=== PATIENT | female | born 2000 | race Caucasian/White ===

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

== ENCOUNTER → 2019-02-02 | Outpatient (CLI) | payer BC | END | disposition home or self-care (01) | LOC: US 06:30 | DX: K81.0 Acute cholecystitis (principal); R11.0 Nausea ==

== ENCOUNTER → 2019-08-02 | Outpatient (CLI) | payer BC | END | disposition home or self-care (01) | LOC: US 16:00 | DX: M79.605 Pain in left leg (principal); R20.0 Anesthesia of skin ==

== ENCOUNTER → 2021-06-13 | Outpatient (CLI) | payer BC, OTHER | END | disposition home or self-care (01) | LOC: RAD 14:00 | PROVIDERS: ATTEND Nurse Practitioner Family | DX: N92.6 Irregular menstruation, unspecified (principal); R10.9 Unspecified abdominal pain; F32.A Depression, unspecified ==

== ENCOUNTER 2021-11-16 08:27 | Emergency (ER) | payer BC, OTHER ==
[~2021-11-16] VITALS: Ht 160 cm; Wt 95.3 kg
[2021-11-16 08:56] LABS: BASO % 0.2 % (0.0-1.0); EOS # 0.1 10*3/uL (0.0-0.4); EOS % 0.9 % (1.0-4.0); HEMATOCRIT 41.1 % (37.0-47.0); LYMPH # 1.8 10*3/uL (1.3-4.4); LYMPH % 21.4 % (27.0-41.0); MEAN CORPUSCULAR HGB 29.7 pg (27.0-31.0); MEAN CORPUSCULAR HGB CONC 33.3 g/dl (33.0-37.0); MEAN PLATELET VOLUME 10.9 fl (9.6-12.3); MONO # 0.4 10*3/uL (0.1-1.0); MONO % 4.8 % (3.0-9.0); NEUT # 6.2 10*3/uL (2.3-7.9); NEUT % 72.5 % (47.0-73.0); PLATELET COUNT AUTOMATED 214 10*3/uL (130-400); RED BLOOD COUNT 4.62 10*6/uL (4.10-5.10); RED CELL DISTRI WIDTH 12.9 % (0-14.5); WHITE BLOOD COUNT 8.5 10*3/uL (4.8-10.8)
[2021-11-16 09:18] LABS: ALKALINE PHOSPHATASE 60 U/L (45-117); BUN 8 mg/dl (7-24); CHLORIDE 109 mmol/L (98-107); CREATININE 0.62 mg/dL (0.55-1.02); POTASSIUM 4.4 mmol/L (3.5-5.1); SGOT/AST 13 IU/L (3-35); SGPT/ALT 20 U/L (12-78); SODIUM 140 mmol/L (136-145); TOTAL PROTEIN 6.8 gm/dL (6.4-8.2)
[2021-11-16 09:46] LABS: BILIRUBIN Negative (Negative); BLOOD Negative (Negative); CLARITY Cloudy (Clear); COLOR Yellow (Yellow); GLUCOSE Negative (Negative); KETONE Negative (Negative); LEUKO ESTERASE Trace (Negative); NITRITE Negative (Negative); SPECIFIC GRAVITY 1.015 (1.001-1.030)
[2021-11-16 09:53] LABS: PH 8.5 (4.5-8.0)
[2021-11-16 09:55] LABS: BACTERIA 1+; EPITHELIAL CELLS 21-30; MUCOUS 1+
[2021-11-16] MEDS ORDERED: CEPHALEXIN500 M1 PO (12:54)
== END 2021-11-16 14:07 | disposition home or self-care (01) ==
LOC: ED 08:27
PROVIDERS: Student in an Organized Health Care Education/Training Program
DX: O26.892 Other specified pregnancy related conditions, second trimester (principal); F41.9 Anxiety disorder, unspecified; R07.9 Chest pain, unspecified

== ENCOUNTER → 2022-06-12 | Outpatient (CLI) | payer BC, OTHER ==
[~2022-06-12] MED LIST changes: +CEPHALEXIN500 M1 PO
== END | disposition home or self-care (01) ==
LOC: US 12:00
PROVIDERS: ATTEND Physical Therapist
DX: L03.90 Cellulitis, unspecified (principal)